=== PATIENT | male | born 1985 | race Caucasian/White ===

== ENCOUNTER 2018-07-20 12:39 | Emergency (ER) | payer OTHER ==
--- NOTE | 2018-07-20 12:58 | UC ---
Skin Complaint HPI - HPI Summary HPI Summary: 32 yo male presents with ?shingles to left ribs. He tells me that about a 5-6 days ago he developed some red stinging bumps to his left mid back and left ribs. He has been applying triple anbx ointment and keeping them covered with a band-aid. He is here today because he thinks he noticed new spots appearing. Is tolerating pain well and says its just a mild stinging. Has never had shingles before. Has been feeling well otherwise and denies fever, chills, cold symptoms , or recent stress. - History of Current Complaint Time Seen by Provider: 07/20/18 12:58 Stated Complaint: SKIN COMP - CHEST/BACK Hx Obtained From: Patient Onset/Duration: Sudden Onset Onset Severity: Mild Current Severity: Mild Pain Intensity: 2 Pain Scale Used: 0-10 Numeric - Allergy/Home Medications Allergies/Adverse Reactions: Allergies Allergy/AdvReac Type Severity Reaction Status Date / Time No Known Allergies Allergy Verified 07/20/18 13:02 PMH/Surg Hx/FS Hx/Imm Hx - Additional Past Medical History Additional PMH: None - Surgical History Surgical History: None - Family History Known Family History: Positive: None - Social History Lives: With Family Alcohol Use: None Substance Use Type: None Smoking Status (MU): Never Smoked Tobacco Review of Systems All Other Systems Reviewed And Are Negative: Yes Constitutional: Positive: Negative Skin: Positive: Rash Eyes: Positive: Negative ENT: Positive: Negative Respiratory: Positive: Negative Cardiovascular: Positive: Negative Gastrointestinal: Positive: Negative Neurovascular: Positive: Negative Neurological: Positive: Negative Psychological: Positive: Negative Physical Exam - Summary Physical Exam Summary: GENERAL: NAD. WDWN. No pain distress. SKIN: LEFT RIBS: Along the posterior and midaxillary T6 dermatome there are erythematous clusters of slightly raised skin lesions. Some with crusting. No blisters appreciated. Slightly TTP. NECK: Supple. Nontender. No lymphadenopathy. CHEST: No accessory muscle use. Breathing comfortably and in no distress. CV: Pulses intact. Cap refill <2seconds NEURO: Alert. PSYCH: Age appropriate behavior. Triage Information Reviewed: Yes Vital Signs: Vital Signs: Temp Pulse Resp BP Pulse Ox 97.6 F 68 18 118/64 100 07/20/18 12:55 07/20/18 12:55 07/20/18 12:55 07/20/18 12:55 07/20/18 12:55 Vital Signs Reviewed: Yes Course/Dx - Course Course Of Treatment: Shingles. Advised to keep covered until well healed. Will start antivirals at this time, but discussed ideal to start treatment in the first 72 hours. - Diagnoses Provider Diagnosis: Shingles Discharge - Sign-Out/Discharge Documenting (check all that apply): Patient Departure All imaging exams completed and their final reports reviewed: No Studies - Discharge Plan Condition: Stable Disposition: HOME Prescriptions: ValACYclovir (*) [Valtrex 1 GM(*)] 1 gm PO TID #21 tab Patient Education Materials: Shingles (ED) Referrals: No Primary Care Phys,NOPCP [Primary Care Provider] - Additional Instructions: If you develop a fever, shortness of breath, chest pain, new or worsening symptoms - please call your PCP or go to the ED immediately. Keep the area covered at all times until lesions are well healed - Billing Disposition and Condition Condition: STABLE Disposition: Home - Attestation Statements Provider Attestation: I was available for consult. This patient was seen by the [facility]. The patient was not presented to, seen by, or examined by me. -Brandee
[2018-07-20 13:02] VITALS: BP 118/64
== END 2018-07-20 13:25 | disposition home or self-care (01) ==
LOC: UCCORT 12:39
DX: B02.9 Zoster without complications (principal)
CPT/HCPCS: 99202; G0463